=== PATIENT | female | born 1980 | race Two or more races ===

== ENCOUNTER 2017-08-25 13:31 | Emergency (ER) | payer MEDICAID ==
[~2017-08-25] VITALS: Ht 167.6 cm; Wt 111.0 kg
[2017-08-25] MEDS ORDERED: DIPHENHYDRAMINE 25MG CAPSULE PO ONE (17:00)
[2017-08-25 17:40] VITALS: BP 128/73
== END 2017-08-25 17:53 | disposition home or self-care (01) ==
LOC: ER 15:36
DX: L29.9 Pruritus, unspecified (principal)
CPT/HCPCS: 99282; Q0163

== ENCOUNTER 2018-03-27 01:26 | Emergency (ER) | payer MEDICAID ==
[~2018-03-27] VITALS: Ht 165.1 cm; Wt 82.0 kg
[2018-03-27 03:13] VITALS: BP 110/56
[2018-03-27] MEDS ORDERED: KETOROLAC 60MG/2ML VIAL IM ONE (03:15)
== END 2018-03-27 04:51 | disposition home or self-care (01) ==
LOC: ER 01:26
DX: S93.402A Sprain of unspecified ligament of left ankle, initial encounter (principal); M79.672 Pain in left foot; W01.0XXA Fall on same level from slipping, tripping and stumbling without subsequent striking against object, initial encounter; Y93.89 Activity, other specified; Y92.89 Other specified places as the place of occurrence of the external cause
CPT/HCPCS: 73610; 73630; 96372; 99284; J1885

== ENCOUNTER 2020-05-01 02:30 | Emergency (ER) | payer MEDICAID ==
[~2020-05-01] VITALS: Ht 165.1 cm; Wt 100.0 kg
[2020-05-01] MEDS ORDERED: ONDANSETRON HCL 4MG/2ML INJ IV STA (02:46)
[2020-05-01] MEDS ORDERED: MORPHINE SULFATE 4 MG/ML CPJ (NOT FOR IM USE) IV STA (02:46)
[2020-05-01 03:22] LABS: CHLORIDE 109 mEq/L (98-107)
[2020-05-01 03:23] LABS: HCG SCREEN NEGATIVE
[2020-05-01 03:24] LABS: BASOPHILS % 0.6 % (0.0-2.0); EOSINOPHILS % 2.5 % (0.0-5.0); HEMATOCRIT. 35.1 % (36.0-48.0); HEMOGLOBIN. 11.5 g/dL (12.0-16.0); LYMPHOCYTES % 19.1 % (20.0-50.0); MEAN CORPUSCULAR HEMOGLOBIN 27.1 pg (28.0-32.0); MEAN CORPUSCULAR VOLUME 82.8 fL (81.0-99.0); MEAN PLATELET VOLUME 8.3 fl (7.4-10.4); MONOCYTES % 5.6 % (2.0-8.0); NEUTROPHILS % 72.2 % (40.0-76.0); PLATELET 226 x1000/uL (130-400); RED BLOOD CELL COUNT 4.24 mill/uL (4.2-5.4); RED CELL DISTRIBUTION WIDTH 15.1 % (11.6-14.6)
[2020-05-01 04:55] LABS: CLARITY URINE CLOUDY (CLEAR); COLOR URINE DARK YELLOW (YELLOW); KETONES URINE 2+ (NEGATIVE); LEUKOCYTE ESTERASE URINE 1+ (NEGATIVE); NITRITE URINE NEGATIVE (NEGATIVE); OCCULT BLOOD URINE NEGATIVE (NEGATIVE); PH URINE 6.5 (4.5-8.0); PROTEIN URINE 2+ (NEGATIVE); SPECIFIC GRAVITY URINE 1.034 (1.005-1.030)
[2020-05-01 05:14] VITALS: BP 117/74
== END 2020-05-01 05:56 | disposition home or self-care (01) ==
LOC: ER 02:30
DX: R10.9 Unspecified abdominal pain (principal); I10 Essential (primary) hypertension; Z98.84 Bariatric surgery status
CPT/HCPCS: 36415; 74176; 80053; 81003; 83690; 84703; 85025; 93005; 96374; 96375; 99285; J2270; J2405

== ENCOUNTER 2020-08-09 17:09 | Emergency (ER) | payer MEDICAID ==
[~2020-08-09] VITALS: Ht 167.6 cm; Wt 86.0 kg
[2020-08-09] MEDS ORDERED: CEFTRIAXONE SODIUM 500 MG/VIAL IM ONE (18:30)
[2020-08-09] MEDS ORDERED: ACETAMINOPHEN 325MG TABLET PO ONE (18:30)
[2020-08-09] MEDS ORDERED: LIDOCAINE HCL 1% 20ML VIAL (Pyxis) INJ INFIL ONE (19:30)
[2020-08-09 21:00] VITALS: BP 120/80
[2020-08-12 10:10] LABS: NEISSERIA GONORRHOEAE NAA Negative (Negative)
== END 2020-08-09 21:01 | disposition home or self-care (01) ==
LOC: ER 17:09
DX: N76.0 Acute vaginitis (principal); R68.84 Jaw pain; I10 Essential (primary) hypertension; F12.10 Cannabis abuse, uncomplicated; Z98.84 Bariatric surgery status; Y04.0XXA Assault by unarmed brawl or fight, initial encounter; Y07.03 Male partner, perpetrator of maltreatment and neglect; Y93.89 Activity, other specified; Y92.018 Other place in single-family (private) house as the place of occurrence of the external cause
CPT/HCPCS: 70486; 81025; 87210; 87491; 87591; 96372; 99284; J0696; J3490

== ENCOUNTER 2022-01-15 13:31 | Emergency (ER) | payer MEDICAID ==
[~2022-01-15] VITALS: Ht 167.6 cm; Wt 80.0 kg
[2022-01-15] MEDS ORDERED: IBUPROFEN 600MG TABLET PO STA (16:43)
[2022-01-15] MEDS ORDERED: IBUPROFEN 600MG TABLET PO NR (16:43)
[2022-01-15 17:38] LABS: BASOPHILS % 0.9 % (0.0-2.0); CHLORIDE 108 mEq/L (98-107); EOSINOPHILS % 4.3 % (0.0-5.0); HEMATOCRIT. 36.7 % (36.0-48.0); HEMOGLOBIN. 12.1 g/dL (12.0-16.0); LYMPHOCYTES % 25.4 % (20.0-50.0); MEAN CORPUSCULAR HEMOGLOBIN 28.5 pg (28.0-32.0); MEAN CORPUSCULAR VOLUME 86.5 fL (81.0-99.0); MEAN PLATELET VOLUME 8.4 fl (7.4-10.4); MONOCYTES % 5.2 % (2.0-8.0); NEUTROPHILS % 64.2 % (40.0-76.0); PLATELET 197 x1000/uL (130-400); RED BLOOD CELL COUNT 4.24 mill/uL (4.2-5.4); RED CELL DISTRIBUTION WIDTH 19.2 % (11.6-14.6)
[2022-01-15 17:53] LABS: HCG SCREEN NEGATIVE
[2022-01-15 17:55] LABS: CLARITY URINE CLOUDY (CLEAR); COLOR URINE BLOODY (YELLOW); KETONES URINE NEGATIVE (NEGATIVE); PROTEIN URINE 2+ (NEGATIVE); SPECIFIC GRAVITY URINE 1.025 (1.005-1.030)
[2022-01-15 17:56] LABS: LEUKOCYTE ESTERASE URINE 1+ (NEGATIVE); NITRITE URINE NEGATIVE (NEGATIVE); OCCULT BLOOD URINE 3+ (NEGATIVE)
[2022-01-15] MEDS ORDERED: GABA-529 MT (18:31)
[2022-01-15 18:41] VITALS: BP 115/78
== END 2022-01-15 18:41 | disposition home or self-care (01) ==
LOC: ER 13:31
DX: G62.9 Polyneuropathy, unspecified (principal); R53.1 Weakness; J45.909 Unspecified asthma, uncomplicated; Z87.440 Personal history of urinary (tract) infections; Z98.890 Other specified postprocedural states; Z87.891 Personal history of nicotine dependence
CPT/HCPCS: 36415; 80053; 81003; 83735; 84484; 84703; 85025; 93005; 99285